=== PATIENT | male | born 1955 | race African-American/Black ===

== ENCOUNTER 2017-08-15 11:51 | Emergency (ER) | payer MEDICAID, OTHER ==
[~2017-08-15] VITALS: Ht 175.3 cm; Wt 76.0 kg
[2017-08-15] MEDS ORDERED: insulin (12:04)
[2017-08-15] MEDS ORDERED: GLIP5TAB12 PO (12:04)
[2017-08-15] MEDS ORDERED: VANCOMYCIN 1 G PREMIX 200 ML IV SCH (13:15)
[2017-08-15 13:26] LABS: BASOPHILS % 0.7 % (0.0-2.0); HEMATOCRIT. 34.9 % (42.0-52.0); HEMOGLOBIN. 11.9 g/dL (14.0-18.0); LYMPHOCYTES % 29.9 % (20.0-50.0); MEAN CORPUSCULAR HEMOGLOBIN 35.1 pg (28.0-32.0); MEAN CORPUSCULAR VOLUME 102.5 fL (80.0-94.0); MEAN PLATELET VOLUME 7.3 fl (7.4-10.4); MONOCYTES % 11.4 % (2.0-8.0); PLATELET 170 x1000/uL (130-400); RED CELL DISTRIBUTION WIDTH 13.7 % (11.6-14.6)
[2017-08-15 13:31] LABS: CHLORIDE 105 mEq/L (98-107)
[2017-08-15 13:36] LABS: INR 1.1; PROTHROMBIN TIME 11.3 sec (9.4-11.6)
[2017-08-15 13:39] LABS: CARBON DIOXIDE 24 mEq/L (21-32)
[2017-08-15] MEDS ORDERED: SODIUM CHLORIDE 0.9% 1000ML BAG (SEPSIS BOLUS) IV ONE (14:15)
[2017-08-15] MEDS ORDERED: INSULIN REGULAR (HUMULIN R) UD 100 UNITS/ML SYR IV ONE (14:45)
[2017-08-15] MEDS ORDERED: ONDANSETRON HCL 4MG/2ML VIAL IV ONE (16:15)
[2017-08-15] MEDS ORDERED: MORPHINE SULFATE 4 MG/ML CPJ (NOT FOR IM USE) IV ONE (16:15)
[2017-08-15 17:25] VITALS: BP 168/95
== END 2017-08-15 17:42 | disposition short-term general hospital (02) ==
LOC: ER 12:35 → EDBEDREQ 13:38 → CANRESERV 14:55 → ENRESERV 14:55 → ER 17:42 → CANBEDREQ 18:12
DX: T24.022A Burn of unspecified degree of left knee, initial encounter (principal); T31.0 Burns involving less than 10% of body surface; L03.116 Cellulitis of left lower limb; E87.2 Acidosis; E11.65 Type 2 diabetes mellitus with hyperglycemia; Z79.4 Long term (current) use of insulin; W86.8XXA Exposure to other electric current, initial encounter; Y93.89 Activity, other specified; Y92.89 Other specified places as the place of occurrence of the external cause; Y99.8 Other external cause status
CPT/HCPCS: 36415; 71010; 73562; 80053; 82962; 83036; 83605; 85025; 85610; 87040; 87070; 87077; 87205; 93005; 96361; 96374; 96375; 99285; J1815; J2270; J2405; J3370; J7030; Z7610

== ENCOUNTER 2017-09-18 09:07 | Emergency (ER) | payer OTHER ==
[~2017-09-18] VITALS: Ht 177.8 cm; Wt 73.0 kg
[~2017-09-18 09:07] MED LIST: GLIP5TAB12 PO; insulin
[2017-09-18] MEDS ORDERED: SODIUM CHLORIDE 0.9% 1,000 ML IV ONE (09:16)
[2017-09-18] MEDS ORDERED: INSULIN REGULAR (HUMULIN R) 300UNITS/3ML IV ONE (09:30)
[2017-09-18 09:41] LABS: BASOPHILS % 0.7 % (0.0-2.0); EOSINOPHILS % 0.8 % (0.0-5.0); HEMATOCRIT. 39.6 % (42.0-52.0); HEMOGLOBIN. 13.4 g/dL (14.0-18.0); MEAN CORPUSCULAR HEMOGLOBIN 34.3 pg (28.0-32.0); MEAN CORPUSCULAR VOLUME 101.7 fL (80.0-94.0); MEAN PLATELET VOLUME 7.9 fl (7.4-10.4); MONOCYTES % 11.5 % (2.0-8.0); PLATELET 133 x1000/uL (130-400); RED CELL DISTRIBUTION WIDTH 13.4 % (11.6-14.6)
[2017-09-18 09:48] LABS: CHLORIDE 99 mEq/L (98-107)
[2017-09-18 09:55] LABS: CARBON DIOXIDE 20 mEq/L (21-32); ETHANOL BLOOD 268 mg/dL
[2017-09-18 10:39] LABS: *AMPHETAMINES SCREEN URINE NEGATIVE (NEGATIVE); *BARBITURATES SCREEN URINE NEGATIVE (NEGATIVE); *BENZODIAZEPINES SCREEN URINE NEGATIVE (NEGATIVE); *COCAINE SCREEN URINE NEGATIVE (NEGATIVE); CANNABINOID URINE SCREEN NEGATIVE (NEGATIVE); METHADONE URINE SCREEN NEGATIVE (NEGATIVE); OPIATES URINE SCREEN NEGATIVE (NEGATIVE); PHENCYCLIDINE URINE SCREEN NEGATIVE (NEGATIVE)
[2017-09-18 14:57] VITALS: BP 172/98
== END 2017-09-18 15:02 | disposition home or self-care (01) ==
LOC: ER 09:13
DX: T51.0X1A Toxic effect of ethanol, accidental (unintentional), initial encounter (principal); F10.129 Alcohol abuse with intoxication, unspecified; I67.82 Cerebral ischemia; E11.65 Type 2 diabetes mellitus with hyperglycemia; D64.9 Anemia, unspecified; I10 Essential (primary) hypertension; Y90.8 Blood alcohol level of 240 mg/100 ml or more; Z79.4 Long term (current) use of insulin; Y92.89 Other specified places as the place of occurrence of the external cause
CPT/HCPCS: 36415; 70450; 80048; 80305; 80307; 80329; 82962; 83735; 85025; 96361; 96374; 99285; G0482; J1815; Z7610; J7030

== ENCOUNTER 2018-01-06 14:02 | Emergency (ER) | payer OTHER ==
[~2018-01-06] VITALS: Ht 172.7 cm; Wt 82.0 kg
[2018-01-06 15:11] LABS: BASOPHILS % 0.4 % (0.0-2.0); EOSINOPHILS % 1.3 % (0.0-5.0); HEMATOCRIT. 37.4 % (42.0-52.0); HEMOGLOBIN. 13.1 g/dL (14.0-18.0); LYMPHOCYTES % 42.1 % (20.0-50.0); MEAN CORPUSCULAR HEMOGLOBIN 34.6 pg (28.0-32.0); MEAN CORPUSCULAR VOLUME 98.6 fL (80.0-94.0); MEAN PLATELET VOLUME 7.8 fl (7.4-10.4); MONOCYTES % 9.9 % (2.0-8.0); NEUTROPHILS % 46.3 % (40.0-76.0); PLATELET 116 x1000/uL (130-400); RED CELL DISTRIBUTION WIDTH 13.3 % (11.6-14.6)
[2018-01-06 15:16] LABS: CHLORIDE 101 mEq/L (98-107)
[2018-01-06 15:23] LABS: ETHANOL BLOOD 348 mg/dL
[2018-01-06] MEDS ORDERED: SODIUM CHLORIDE 0.9% 1,000 ML IV ONE (16:45)
[2018-01-06 16:59] VITALS: BP 126/96
== END 2018-01-06 17:07 | disposition home or self-care (01) ==
LOC: ER 14:02
DX: F10.229 Alcohol dependence with intoxication, unspecified (principal); E11.649 Type 2 diabetes mellitus with hypoglycemia without coma; E11.65 Type 2 diabetes mellitus with hyperglycemia; E83.51 Hypocalcemia; Z79.4 Long term (current) use of insulin
CPT/HCPCS: 36415; 80048; 85025; 99284; G0482; J7030; Z7610

== ENCOUNTER 2018-10-01 17:45 | Inpatient (IN) | payer OTHER ==
[~2018-10-01] VITALS: Ht 177.8 cm; Wt 80.7 kg
[2018-10-01] MEDS ORDERED: ONDANSETRON HCL 4MG/2ML INJ IV STA (19:21)
[2018-10-01] MEDS ORDERED: MORPHINE SULFATE 4 MG/ML CPJ (NOT FOR IM USE) IV STA (19:21)
[2018-10-01] MEDS ORDERED: SODIUM CHLORIDE 0.9% 1,000 ML IV ONE (19:21)
[2018-10-01 19:57] LABS: BG BASE EXCESS -0.8 mmol/L (-2.0-2.0); BG CARBOXYHEMOGLOBIN 1.1 % (0.5-1.5); BG DEOXYHEMOGLOBIN 7.5 % (0.0-5.0); BG FRACTION INSPIRED OXYGEN 21; BG HCO3 ACT 24.1 mmol/L (22.0-26.0); BG METHEMOGLOBIN 0.3 % (0.0-1.5); BG OXYGEN SATURATION 92.4 % (92.0-98.5); BG OXYHEMOGLOBIN 91.1 % (94.0-97.0); BG PCO2 40.5 mmHg (35.0-45.0); BG PH 7.392 (7.350-7.450); BG PO2 67.8 mmHg (75.0-100.0); BG SAMPLE SITE RIGHT BRACHIAL; BG TOTAL HEMOGLOBIN 13.5 g/dL (12.0-18.0); BG VENT MODE ROOM AIR
[2018-10-01 20:00] LABS: CLARITY URINE CLEAR (CLEAR); COLOR URINE YELLOW (YELLOW); KETONES URINE NEGATIVE (NEGATIVE); LEUKOCYTE ESTERASE URINE NEGATIVE (NEGATIVE); NITRITE URINE NEGATIVE (NEGATIVE); OCCULT BLOOD URINE 2+ (NEGATIVE); PH URINE 5.5 (4.5-8.0); PROTEIN URINE 3+ (NEGATIVE); SPECIFIC GRAVITY URINE 1.016 (1.005-1.030)
[2018-10-01 20:06] LABS: *AMPHETAMINES SCREEN URINE NEGATIVE (NEGATIVE); *BARBITURATES SCREEN URINE NEGATIVE (NEGATIVE); *BENZODIAZEPINES SCREEN URINE NEGATIVE (NEGATIVE); *COCAINE SCREEN URINE NEGATIVE (NEGATIVE); METHADONE URINE SCREEN NEGATIVE (NEGATIVE)
[2018-10-01 20:07] LABS: CANNABINOID URINE SCREEN NEGATIVE (NEGATIVE); OPIATES URINE SCREEN NEGATIVE (NEGATIVE); PHENCYCLIDINE URINE SCREEN NEGATIVE (NEGATIVE)
[2018-10-01 21:44] LABS: HEMATOCRIT. 38.7 % (42.0-52.0); MEAN CORPUSCULAR HEMOGLOBIN 35.3 pg (28.0-32.0); MEAN CORPUSCULAR VOLUME 105.4 fL (80.0-94.0); MEAN PLATELET VOLUME 8.6 fl (7.4-10.4); NEUTROPHILS % 64.7 % (40.0-76.0); PLATELET 128 x1000/uL (130-400); RED BLOOD CELL COUNT 3.67 mill/uL (4.7-6.1); RED CELL DISTRIBUTION WIDTH 15.3 % (11.6-14.6)
[2018-10-01 21:45] LABS: BASOPHILS % 0.7 % (0.0-2.0); EOSINOPHILS % 2.6 % (0.0-5.0); LYMPHOCYTES % 18.7 % (20.0-50.0); MONOCYTES % 13.3 % (2.0-8.0)
[2018-10-01 21:49] LABS: CHLORIDE 107 mEq/L (98-107)
[2018-10-01 21:51] LABS: INR 1.2; PARTIAL THROMBOPLASTIN TIME 26.2 sec (23.4-31.0)
[2018-10-01 21:53] LABS: ETHANOL BLOOD 231 mg/dL
[2018-10-01 21:57] LABS: CREATINE KINASE 110 IU/L (39-308)
[2018-10-01] MEDS ORDERED: IOHEXOL-300 100 ML BOTTLE ONE (21:57)
[2018-10-01 22:02] LABS: BETA HYDROXYBUTYRATE 0.1 mMol/L (0.0-0.3)
[2018-10-02 00:58] VITALS: BP 150/100
[2018-10-02] MEDS ORDERED: HYDROCODONE/ACETAMINOPHEN 5/325MG TABLET PO PRN (01:45)
[2018-10-02] MEDS ORDERED: POTASSIUM CHLORIDE 20MEQ TABLET SR PO SCH ×3 (01:59→12:00)
[2018-10-02] MEDS ORDERED: LEVOFLOXACIN 500MG PREMIX 100 ML IV SCH (03:00)
[2018-10-02 04:00] VITALS: BP 147/97
[2018-10-02] MEDS: BLOOD SUGAR DIAGNOSTIC STRIP TEST SCH ×3 (06:16→17:42)
[2018-10-02 06:53] LABS: CHLORIDE 106 mEq/L (98-107)
[2018-10-02 06:55] LABS: HEMATOCRIT. 37.7 % (42.0-52.0); HEMOGLOBIN. 12.8 g/dL (14.0-18.0); MEAN CORPUSCULAR HEMOGLOBIN 35.8 pg (28.0-32.0); MEAN CORPUSCULAR VOLUME 105.3 fL (80.0-94.0); PLATELET 124 x1000/uL (130-400); RED BLOOD CELL COUNT 3.58 mill/uL (4.7-6.1); RED CELL DISTRIBUTION WIDTH 15.1 % (11.6-14.6)
[2018-10-02 07:12] LABS: LDL CHOLESTEROL 20 mg/dL (5-100)
[2018-10-02 07:14] LABS: HDL CHOLESTEROL 97 mg/dL (40-59)
[2018-10-02 08:04] VITALS: BP 130/88
[2018-10-02] MEDS: INSULIN LISPRO 100 UNITS/ML SUBCUT SCH ×3 (08:12→17:48)
[2018-10-02] MEDS ORDERED: ASPIRIN 81MG TABLET PO SCH (09:00)
[2018-10-02] MEDS ORDERED: LISINOPRIL 20MG TABLET PO SCH (09:00)
[2018-10-02] MEDS ORDERED: INSULIN GLARGINE UD 100 UNITS/ML SYR SUBCUT SCH ×2 (10:00→22:00)
[2018-10-02] MEDS ORDERED: INFLUENZA VIRUS VACCINE(AFLURIA) 0.5ML SYR IM ONE (12:00)
[2018-10-02] MEDS ORDERED: PNEUMOCOCCAL 23-VAL P-SAC VAC 0.5 ML IM ONE (12:00)
[2018-10-02 12:10] VITALS: BP 140/88
[2018-10-02] MEDS: DEXTROSE 50% WATER 50ML SYRINGE IV PRN ×2 (12:19→17:47)
[2018-10-02] MEDS ORDERED: MULTIVITAMINS,THER W-MINERALS TABLET PO SCH (12:30)
[2018-10-02] MEDS ORDERED: ENOXAPARIN 40MG/0.4ML SYR SUBCUT SCH (12:30)
[2018-10-02] MEDS ORDERED: THIAMINE HCL 100MG TABLET PO SCH (12:30)
[2018-10-02] MEDS ORDERED: FOLIC ACID 1MG TABLET PO SCH (12:30)
[2018-10-02] MEDS: FUROSEMIDE 100MG/10ML VIAL IVP SCH ×2 (13:05→17:47)
[2018-10-02 13:20] LABS: PLATELET ESTIMATE SLIGHTLY DECREASED
[2018-10-02 16:10] VITALS: BP 128/78
[2018-10-02 20:14] VITALS: BP 141/81
== END 2018-10-02 20:30 | disposition short-term general hospital (02) | DRG 194 ==
LOC: ER 17:45 → ENRESERV 19:59 → 6WST 22:21 → EDBEDREQ 22:35 → EDBEDREQTM 22:35
PROVIDERS: ADMIT Internal Medicine; ATTEND Internal Medicine
DX: I50.41 Acute combined systolic (congestive) and diastolic (congestive) heart failure (principal); J96.00 Acute respiratory failure, unspecified whether with hypoxia or hypercapnia; E43 Unspecified severe protein-calorie malnutrition; D69.6 Thrombocytopenia, unspecified; E11.9 Type 2 diabetes mellitus without complications; D64.9 Anemia, unspecified; E87.6 Hypokalemia; F10.10 Alcohol abuse, uncomplicated; Z79.4 Long term (current) use of insulin; Z68.25 Body mass index [BMI] 25.0-25.9, adult
CPT/HCPCS: 36415; 36600; 71045; 72170; 73552; 74177; 80048; 80061; 80305; 82010; 82375; 82550; 82805; 82962; 83036; 83605; 83880; 84145; 84443; 84484; 85007; 85027; 86850; 86900; 90686; 90732; 93005; 93306; 93970; 96374; 96375; 97162; 99291; G0482; J1650; J1815; J1940; J1956; J2270; J2405; J7030; J7040; Q9967

== ENCOUNTER 2018-10-21 16:09 | Inpatient (IN) | payer OTHER ==
[~2018-10-21] VITALS: Ht 175.3 cm; Wt 91.6 kg
[2018-10-21] MEDS ORDERED: FUROSEMIDE 40MG TABLET PO ONE (17:00)
[2018-10-21 17:43] LABS: BASOPHILS % 0.6 % (0.0-2.0); HEMOGLOBIN. 12.6 g/dL (14.0-18.0); MEAN CORPUSCULAR HEMOGLOBIN 35.4 pg (28.0-32.0); MEAN CORPUSCULAR VOLUME 106.7 fL (80.0-94.0); MEAN PLATELET VOLUME 8.2 fl (7.4-10.4); MONOCYTES % 7.5 % (2.0-8.0); NEUTROPHILS % 76.9 % (40.0-76.0); PLATELET 220 x1000/uL (130-400); RED BLOOD CELL COUNT 3.56 mill/uL (4.7-6.1); RED CELL DISTRIBUTION WIDTH 14.8 % (11.6-14.6)
[2018-10-21] MEDS ORDERED: HYDROCODONE/ACETAMINOPHEN 5/325MG TABLET PO ONE (17:45)
[2018-10-21 17:48] LABS: CHLORIDE 107 mEq/L (98-107); INR 1.1; PROTHROMBIN TIME 11.5 sec (9.1-11.1)
[2018-10-21 17:52] LABS: ETHANOL BLOOD 148 mg/dL
[2018-10-21 18:03] LABS: *AMPHETAMINES SCREEN URINE NEGATIVE (NEGATIVE); *BENZODIAZEPINES SCREEN URINE NEGATIVE (NEGATIVE); *COCAINE SCREEN URINE NEGATIVE (NEGATIVE); CANNABINOID URINE SCREEN NEGATIVE (NEGATIVE); METHADONE URINE SCREEN NEGATIVE (NEGATIVE); OPIATES URINE SCREEN NEGATIVE (NEGATIVE); PHENCYCLIDINE URINE SCREEN NEGATIVE (NEGATIVE)
[2018-10-21 18:04] LABS: *BARBITURATES SCREEN URINE NEGATIVE (NEGATIVE)
[2018-10-21 21:00] VITALS: BP 126/70
[2018-10-21] MEDS ORDERED: DIPHENHYDRAMINE 50MG/ML VIAL IV PRN (23:00)
[2018-10-21] MEDS ORDERED: DEXTROSE 50% WATER 50ML SYRINGE IV PRN (23:00)
[2018-10-21] MEDS: HYDROCODONE/ACETAMINOPHEN 5/325MG TABLET PO PRN (23:34)
[2018-10-22] VITALS (7 sets, daily range): BP systolic 118–141; BP diastolic 82–94
[2018-10-22] MEDS ORDERED: FOLIC ACID 1 MG, THIAMINE HCL 100 MG, MVI, ADULT NO.1 10 ML in DEXTROSE 5% WATER 1,000 ML IV NR ×4 (01:00)
[2018-10-22] MEDS: FUROSEMIDE 40MG/4ML VIAL IVP SCH ×2 (06:19→17:45)
[2018-10-22] MEDS: HYDROCODONE/ACETAMINOPHEN 5/325MG TABLET PO PRN ×2 (06:20→10:05)
[2018-10-22] MEDS: BLOOD SUGAR DIAGNOSTIC STRIP TEST SCH ×4 (06:25→20:18)
[2018-10-22 06:28] LABS: HEMATOCRIT 34.4 % (42.0-52.0); HEMOGLOBIN 11.4 g/dL (14.0-18.0); MEAN CORPUSCULAR HEMOGLOBIN 35.3 pg (28.0-32.0); MEAN CORPUSCULAR VOLUME 106.1 fL (80.0-94.0); PLATELET 191 x1000/uL (130-400); RED BLOOD CELL COUNT 3.24 mill/uL (4.7-6.1); RED CELL DISTRIBUTION WIDTH 14.7 % (11.6-14.6)
[2018-10-22] MEDS ORDERED: SPIR25TA6 PO (07:57)
[2018-10-22] MEDS ORDERED: LISI-604 PO (07:57)
[2018-10-22] MEDS ORDERED: FOLI-43 PO (07:57)
[2018-10-22] MEDS ORDERED: FURO40TA5 PO (07:57)
[2018-10-22] MEDS ORDERED: THIA100T72 PO (07:57)
[2018-10-22] MEDS ORDERED: LEVVL SQ (07:57)
[2018-10-22 09:07] LABS: CHLORIDE 108 mEq/L (98-107)
[2018-10-22 09:18] LABS: CREATINE KINASE 92 IU/L (39-308)
[2018-10-22 09:21] LABS: CREATINE KINASE MB FRACTION 4.6 ng/mL (0.5-3.6)
[2018-10-22] MEDS: INSULIN LISPRO 100 UNITS/ML SUBCUT SCH ×4 (09:46→20:30)
[2018-10-22] MEDS: ENOXAPARIN 30MG/0.3ML SYR SUBCUT SCH ×2 (09:47→20:18)
[2018-10-22] MEDS ORDERED: IPRATROPIUM/ALBUTEROL 0.5-3(2.5)MG/3ML NEB HHN PRN (19:45)
[2018-10-23] VITALS (7 sets, daily range): BP systolic 120–166; BP diastolic 82–90
[2018-10-23] MEDS: BLOOD SUGAR DIAGNOSTIC STRIP TEST SCH ×4 (06:32→21:09)
[2018-10-23] MEDS: FUROSEMIDE 40MG/4ML VIAL IVP SCH ×2 (06:35→17:47)
[2018-10-23 07:45] LABS: BASOPHILS % 0.5 % (0.0-2.0); EOSINOPHILS % 4.2 % (0.0-5.0); HEMATOCRIT. 32.4 % (42.0-52.0); LYMPHOCYTES % 11.7 % (20.0-50.0); MEAN CORPUSCULAR VOLUME 105.8 fL (80.0-94.0); MEAN PLATELET VOLUME 8.1 fl (7.4-10.4); MONOCYTES % 11.7 % (2.0-8.0); NEUTROPHILS % 71.9 % (40.0-76.0); PLATELET 184 x1000/uL (130-400); RED BLOOD CELL COUNT 3.07 mill/uL (4.7-6.1); RED CELL DISTRIBUTION WIDTH 14.7 % (11.6-14.6)
[2018-10-23 08:01] LABS: CHLORIDE 108 mEq/L (98-107)
[2018-10-23] MEDS ORDERED: THIAMINE HCL 100MG TABLET PO SCH (09:00)
[2018-10-23] MEDS ORDERED: FOLIC ACID 1MG TABLET PO SCH (09:00)
[2018-10-23] MEDS ORDERED: MULTIVITAMINS,THER W-MINERALS TABLET PO SCH (09:00)
[2018-10-23] MEDS: ENOXAPARIN 30MG/0.3ML SYR SUBCUT SCH ×2 (09:06→21:25)
[2018-10-23] MEDS: HYDROCODONE/ACETAMINOPHEN 5/325MG TABLET PO PRN ×2 (09:10→18:13)
[2018-10-23] MEDS: INSULIN LISPRO 100 UNITS/ML SUBCUT SCH ×4 (10:14→21:26)
[2018-10-23] MEDS ORDERED: CHLORDIAZEPOXIDE 25MG CAPSULE PO SCH (22:00)
== END 2018-10-23 23:00 | disposition short-term general hospital (02) | DRG 420 ==
LOC: ER 16:49 → 6WST 18:22 → EDBEDREQ 18:27 → ENRESERV 19:41
PROVIDERS: ADMIT Internal Medicine; ATTEND Internal Medicine
DX: E11.65 Type 2 diabetes mellitus with hyperglycemia (principal); I50.23 Acute on chronic systolic (congestive) heart failure; E46 Unspecified protein-calorie malnutrition; I11.0 Hypertensive heart disease with heart failure; E78.00 Pure hypercholesterolemia, unspecified; Y90.6 Blood alcohol level of 120-199 mg/100 ml; F10.20 Alcohol dependence, uncomplicated; E78.5 Hyperlipidemia, unspecified; Z87.891 Personal history of nicotine dependence; Z68.29 Body mass index [BMI] 29.0-29.9, adult
CPT/HCPCS: 36415; 71045; 72141; 72148; 80048; 80305; 82550; 82553; 82962; 83036; 83880; 84484; 85027; 93005; 93970; 99285; G0482; J1650; J1815; J1940; J3411; J3490; J7070; J7620

== ENCOUNTER 2018-11-07 11:46 | Emergency (ER) | payer OTHER ==
[~2018-11-07] VITALS: Ht 180.3 cm; Wt 98.0 kg
[~2018-11-07 11:46] MED LIST changes: +FOLI-43 PO; +FURO40TA5 PO; +LEVVL SQ; +LISI-604 PO; +SPIR25TA6 PO; +THIA100T72 PO
[2018-11-07] MEDS ORDERED: IBUPROFEN 600MG TABLET PO STA (12:36)
[2018-11-07] MEDS ORDERED: ASPIRIN 81MG TABLET PO ONE (12:45)
[2018-11-07 14:41] LABS: HEMATOCRIT. 42.7 % (42.0-52.0); HEMOGLOBIN. 13.6 g/dL (14.0-18.0); MEAN CORPUSCULAR VOLUME 106.9 fL (80.0-94.0); MEAN PLATELET VOLUME 8.2 fl (7.4-10.4); PLATELET 240 x1000/uL (130-400); RED BLOOD CELL COUNT 3.99 mill/uL (4.7-6.1); RED CELL DISTRIBUTION WIDTH 14.6 % (11.6-14.6)
[2018-11-07 14:45] LABS: CHLORIDE 111 mEq/L (98-107)
[2018-11-07 14:58] LABS: ATYPICAL LYMPHOCYTES 1; PLATELET ESTIMATE NORMAL
[2018-11-07] MEDS ORDERED: FUROSEMIDE 40MG/4ML VIAL IVP ONE (15:15)
[2018-11-07] MEDS ORDERED: LABETALOL 5MG/ML SYR 20 MG/4 ML SYRINGE IV ONE (15:15)
[2018-11-07] MEDS ORDERED: LABETALOL HCL 20MG/4ML CARPUJECT IV ONE (18:00)
[2018-11-07 18:11] VITALS: BP 140/89
== END 2018-11-07 19:04 | disposition short-term general hospital (02) ==
LOC: ER 12:10 → CANBEDREQ 15:57 → ER 19:04
DX: I11.0 Hypertensive heart disease with heart failure (principal); I50.9 Heart failure, unspecified; E11.9 Type 2 diabetes mellitus without complications; E78.00 Pure hypercholesterolemia, unspecified; Z98.890 Other specified postprocedural states; Z79.4 Long term (current) use of insulin; Z79.899 Other long term (current) drug therapy
CPT/HCPCS: 36415; 71045; 80053; 83880; 84484; 85025; 93005; 96374; 96375; 99285; J1940; J3490